=== PATIENT | female | born 1945 | race Caucasian/White ===

== ENCOUNTER 2024-12-08 11:14 | Emergency (ER) | payer MEDICARE, SELFPAY ==
--- NOTE | ~2024-12-08 | XR_ITS ---
EXAM/PROCEDURE: XR chest 2V - 12/08/2024 11:45 CDT HISTORY: 79 years old Female with fall TECHNIQUE: Two view(s) of the chest. COMPARISON: None available. FINDINGS: LUNGS/ PLEURA: No focal consolidation. No appreciable pneumothorax or large pleural effusion. HEART/ MEDIASTINUM: Heart appears normal in size. Atherosclerotic calcifications are seen in the aort a. BONES: Degenerative changes. Mild dextroscoliosis. OTHER: Visualized upper abdomen is unremarkable. IMPRESSION: No acute process. Reviewed, dictated and finalized at location A. IMPRESSION: No acute process.
--- NOTE | ~2024-12-08 | XR_ITS ---
EXAM/ PROCEDURE: XR pelvis 1-2V - 12/08/2024 11:45 CDT HISTORY: 79 years old Female with fall COMPARISON: None available TECHNIQUE: Two view(s) FINDINGS/ IMPRESSION: There are no fractures or dislocations.Joint space narrowing, subchondral sclerosis, subchondral cyst formation and osteophyte formation, compatible with moderate osteoarthritis. Reviewed, dictated and finalized at location A.
--- NOTE | ~2024-12-08 | XR_ITS ---
EXAM/ PROCEDURE: XR wrist LT min 3V - 12/08/2024 14:50 CDT HISTORY: 79 years old Female with trauma COMPARISON: None available TECHNIQUE: Three view(s) FINDINGS/ IMPRESSION: Diffuse osteopenia limiting evaluation of nondisplaced fracture. There are no fractures or dislocations.Joint space narrowing, subchondral sclerosis, subchondral cyst formation and osteophyte formation, compatible with mild osteoarthritis. Reviewed, dictated and finalized at location A.
--- NOTE | ~2024-12-08 | CT_ITS ---
EXAM: CT brain wo con, CT cervical spine wo con - 12/08/2024 11:25 CDT HISTORY: 79 years old Female with fall, head injury COMPARISON: None available. PROCEDURE: CT of the head and cervical spine without contrast. Axial, sagittal and coronal reformat karissa planes were evaluated. Automatic exposure control was used for this study. FINDINGS: Evaluation is limited secondary to artifact caused by the patient's motion. 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 No acute hemorrhage. No mass effect or herniation. Cline-white matter differentiation is maintained. M ild chronic volume loss. Scattered hypodensities in subcortical and periventricular white matter, lik bertha representing chronic microvascular ischemic changes in this age group. Atherosclerotic calcificat ion of the intracranial vessels is noted. VENTRICLES/ EXTRA-AXIAL SPACES: No hydrocephalus or extra-axial fluid collection. EXTRACRANIAL STRUCTURES: No calvarial fracture. CT CERVICAL SPINE: No acute fracture or subluxation. Straightening of cervical lordosis, likely positional or may be rel ated to muscle spasm. Multilevel degenerative changes of the cervical spine include varying degrees o f disk space narrowing, endplate osteophytosis as well as facet and uncal arthropathy. Prevertebral s oft tissues are within normal limits. Emphysematous changes are seen in the lungs. Heterogenous thyroid gland with multiple nodules. IMPRESSION: 1. No evidence for acute intracranial hemorrhage or calvarial fracture. 2. No evidence for cervical spine fracture or traumatic subluxation. 3. Multilevel degenerative changes of the cervical spine. 4. Heterogenous thyroid gland with multiple nodules. Correlate with prior imaging otherwise outpatie nt thyroid ultrasound can be performed for further evaluation. Reviewed, dictated and finalized at location A. IMPRESSION: 1. No evidence for acute intracranial hemorrhage or calvarial fracture. 2. No evidence for cervical spine fracture or traumatic subluxation. 3. Multilevel degenerative changes of the cervical spine. 4. Heterogenous thyroid gland with multiple nodules. Correlate with prior imag ing otherwise outpatient thyroid ultrasound can be performed for further evalua tion.
--- NOTE | 2024-12-08 11:20 | ED_ITS ---
HPI - Fall General Chief Complaint: Fall <Estela Stevens PA-C - Last Filed: 12/08/24 18:50> Stated Complaint: Fall-hit back of head <Estela Stevens PA-C - Last Filed: 12/08/24 18:50> Time Seen by Provider: 12/08/24 11:20 <Estela Stevens PA-C - Last Filed: 12/08/24 18:50> Focused HPI: This is a 79-year-old female that presents to the emergency department after a fall today. Reports she tripped in the parking lot and fell backwards. Hit her head. Does not believe she lost consciousness. Reports she is on a blood thinner. GENERAL: Elderly, well-nourished, and in no acute distress. HEAD: Normocephalic, atraumatic. CHEST: Clear to auscultation. ?No respiratory distress. HEART: Regular rate and rhythm.? NEURO: ?Alert and oriented x3. Patient screened in triage and initial orders placed.? ?Additional care and disposition to be based upon?diagnostic testing and treatment. <Estela Stevens PA-C - Last Filed: 12/08/24 18:50> Related Data Allergies/Adverse Reactions: Allergies Allergy/AdvReac Type Severity Reaction Status Date / Time No Known Allergies Allergy Verified 12/08/24 15:05 <Estela Stevens PA-C - Last Filed: 12/08/24 18:50> Review of Systems Review of Systems: All systems reviewed & are unremarkable except as noted in HPI and below (HPI) <Ildefonso Jorge MD - Last Filed: 12/08/24 15:23> Exam Narrative: Constitutional: Generally well appearing, no acute distress Head: Atraumatic, no deformities. Eyes: Pupils equal, round, and reactive to light. Neck: Supple, no tracheal deviation, no JVD. ENMT: Mucous membranes moist Cardiovascular: S1, S2 auscultated. No murmurs, rubs, or gallops. No S3/S4. Normal Distal pulses. No peripheral edema. Respiratory: Lung sounds equal. No wheezes, rales, or rhonchi. Gastrointestinal: Abdomen was soft and non-tender. Non-distended. No rebound or guarding. Genitourinary: Deferred Musculoskeletal: Normal muscle tone and bulk. No obvious deformities over the extremities. Only tender in the left wrist over the medial and lateral aspect without any significant swelling. Mild pain with range of motion of the wrist. Neurovascularly intact distally Skin: No rashes. Neurological: Strength 5/5 in extremities. Cranial nerves I-XII grossly intact. Distal sensation intact. Mental Status: Awake, alert and oriented x3. Follows commands <Ildefonso Jorge MD - Last Filed: 12/08/24 15:23> Course Vital Signs Vital signs: Vital Signs Temperature 98 F 12/08/24 11:21 Pulse Rate 97 12/08/24 11:21 Respiratory Rate 18 12/08/24 11:21 Blood Pressure 97/50 L 12/08/24 11:21 Pulse Oximetry 96 12/08/24 11:21 Oxygen Delivery Room Air 12/08/24 11:21 Temperature 98 F 12/08/24 11:21 Pulse Rate 72 12/08/24 15:07 Respiratory Rate 22 H 12/08/24 15:07 Blood Pressure 131/47 L 12/08/24 15:07 Pulse Oximetry 97 12/08/24 15:07 Oxygen Delivery Room Air 12/08/24 14:27 <Estela Stevens PA-C - Last Filed: 12/08/24 18:50> Vital Signs Temperature 98 F 12/08/24 11:21 Pulse Rate 97 12/08/24 11:21 Respiratory Rate 18 12/08/24 11:21 Blood Pressure 97/50 L 12/08/24 11:21 Pulse Oximetry 96 12/08/24 11:21 Oxygen Delivery Room Air 12/08/24 11:21 Temperature 98 F 12/08/24 11:21 Pulse Rate 72 12/08/24 15:07 Respiratory Rate 22 H 12/08/24 15:07 Blood Pressure 131/47 L 12/08/24 15:07 Pulse Oximetry 97 12/08/24 15:07 Oxygen Delivery Room Air 12/08/24 14:27 <Ildefonso Jorge MD - Last Filed: 12/08/24 15:23> MDM - Fall MDM Narrative Medical decision making narrative: Patient presenting for fall backwards of her wheelchair. She struck her head on the ground. No LOC. She is on Eliquis. Her only complaint at this point has pain in her left wrist exam shows mild tenderness with range of motion and lateral medial aspect tenderness of the wrist but no deformity and she is neurovascularly intact. Obtaining imaging to further evaluate. Imaging showed no focal function without regional bleeding. Patient reassessed, feeling well. Stable for discharge Pt feeling improved and would like to go home at this point. Return precautions were given to the patient include any new or worsening symptoms or development of and not limited to any chest pain, shortness of breath, lightheadedness, abdominal pain, fevers, chills. Patient understands and agrees. They are to follow-up with her PCP. All questions were answered. I reviewed and interpreted the patient's vital signs, pulse oximetry, cardiac care unit nurse, history, allergies, and labs and imaging workup. <Ildefonso Jorge MD - Last Filed: 12/08/24 15:23> Discharge Plan Discharge Clinical Impression: Accidental fall from wheelchair Qualifiers: Encounter type: initial encounter Qualified Code(s): W05.0XXA - Fall from non- moving wheelchair, initial encounter Head injury Qualifiers: Encounter type: initial encounter Qualified Code(s): S09.90XA - Unspecified injury of head, initial encounter Contusion of left wrist Qualifiers: Encounter type: initial encounter Qualified Code(s): S60.212A - Contusion of left wrist, initial encounter <Estela Stevens PA-C - Last Filed: 12/08/24 18:50> Patient Disposition: Home <Estela Stevens PA-C - Last Filed: 12/08/24 18:50> Condition: Stable <Estela Stevens PA-C - Last Filed: 12/08/24 18:50> Instructions: Antibiotic Form, Concussion (ED), Head Injury (ED) <Estela Stevens PA-C - Last Filed: 12/08/24 18:50> Patient Language: Latvian <Estela Stevens PA-C - Last Filed: 12/08/24 18:50> Follow-up/Referrals: PHYSICIAN,[employer] TECHNICAL MANAGER [Non-Staff] - <Estela Stevens PA-C - Last Filed: 12/08/24 18:50> Time of Disposition: 15:23 <Estela Stevens PA-C - Last Filed: 12/08/24 18:50> 15:23 <Ildefonso Jorge MD - Last Filed: 12/08/24 15:23>
[2024-12-08 11:21] VITALS: BP 97/50; PULSE 97; RESP 18; TEMP 36.6; O2SAT 96
[2024-12-08 14:27] VITALS: BP 120/55; PULSE 75; RESP 22; O2SAT 98
--- NOTE | 2024-12-08 15:06 | PC.NURSE ---
Family states pt can only take tylenol due to hx of kidney disease
[2024-12-08 15:07] VITALS: BP 131/47; PULSE 72; RESP 22; O2SAT 97
--- OUTSIDE RECORDS SUMMARY | 2024-12-08 15:39 | XMS_ITS | Clinical Summary ---
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
--- OUTSIDE RECORDS SUMMARY | 2024-12-08 15:39 | XMS_ITS ---
Author Organization [facility] Care Team Providers Care Finished Goods Stock Clerk Name Role Phone Isaiah Mcclendon Unavailable Unavailable Allergies and adverse reactions No Known Allergies Care Team Name Role Address Phone Organization Dates Isaiah Mcclendon PCP [address] [place], [address], [place] (Office): : [facility] 10/29/2023 - 11/13/2023 Immunizations Immunization Status Vaccine Details Vaccine Code CodeSystem Julio e Notes Prevnar 13 normal pneumococcal conjugate vaccine, 13 valent 133 CVX created date: 11/02/2023 consent date: 11/02/2023 influenza, unspecified formulation normal influenza virus vaccine, unspecified formulation 88 CVX created date: 11/02/2023 consent date: 11/02/2023 Mental Status Section Date Assessment Total Score Description 11/13/2023 BIMS 05 severe cognitiv e impairment CAM 0 No delirium ind icated PHQ-9 01 minimal depress ion 11/05/2023 BIMS 05 severe cognitiv e impairment CAM 0 No delirium ind icated PHQ-9 01 minimal depress ion Problems Problem # Description Date of onset Resolved Date Code CodeSystem Concern Status 1 ANXIETY DISORDER, UNSPECIFIED 10/29/[address] active 2 BENIGN NEOPLASM OF MENINGES, UNSPECIFIED 10/29/[address] active 3 BIPOLAR DISORDER, UNSPECIFIED 10/29/[address] active [address]Y, UNSPECIFIED 10/29/[address] active 5 CHRONIC KIDNEY DISEASE, STAGE 3B 10/29/[address] active 6 CHRONIC OBSTRUCTIVE PULMONARY DISEASE, UNSPECIFIED 10/29/[address] active 7 CHRONIC PULMONARY EDEMA 10/29/[address] active 8 DEPRESSION, UNSPECIFIED 10/29/[address] active 9 DYSPNEA, UNSPECIFIED 10/29/[address] active 10 EMPHYSEMA, UNSPECIFIED 10/29/[address] active 11 HEART FAILURE, UNSPECIFIED 10/29/[address] active 12 HYPERLIPIDEMIA, UNSPECIFIED 10/29/[address] active 13 NON-ST ELEVATION (NSTEMI) MYOCARDIAL INFARCTION 10/29/[address] active 14 OTHER SPECIFIED DISORDERS OF BONE DENSITY AND STRUCTURE, UNSPECIFIED SITE 10/29/[address] active 15 PARKINSONISM, UNSPECIFIED 10/29/[address] active 16 PAROXYSMAL ATRIAL FIBRILLATION 10/29/[address] active 17 PULMONARY HYPERTENSION, UNSPECIFIED 10/29/[address] active 18 SCHIZOAFFECTIVE DISORDER, BIPOLAR TYPE 10/29/[address] active 19 TYPE 2 DIABETES MELLITUS WITHOUT COMPLICATIONS 10/29/[address] active Reason for Referral No Reasons for Referral Entered Social History Social History Observation Description Start Date End Date Code Code System Current Smoking Status Tobacco smoking consumption unknown 241393285 SNOMED CT Sex Assigned At Female 1945 [address]241-9 [facility] Gender Identity Vital Signs Code Code System Vitals Name Values and Units Timing Information 9279-1 LOINC Respiratory Rate Value=18.0 Units=/m in 11/13/2023 8462-4 LOINC Blood Pressure-Diastolic Value=88 Un its=mmHg 11/13/2023 8480-6 LOINC Blood Pressure-Systolic Ebhaj=422 Un its=mmHg 11/13/2023 8310-5 LOINC Body Temperature Value=97.1 Units= F 11/13/2023 8867-4 [facility] Heart rate Value=78.0 Units=/min 84768-5 [facility] O2 % BldC Oximetry Value=98.0 Units= % 11/13/2023 32978-0 [facility] Pain Level Value=0.0 11/13/2023 13714-3 [facility] Weight Slqyj=313.6 Units=Lbs 8302-2 [facility] Height Value=67.0 Units=Inches 10/29/2023
--- OUTSIDE RECORDS SUMMARY | 2024-12-08 15:39 | XMS_ITS | Encounter Summary ---
Author Organization [employer] [facility] Address [address] [place] [address] Care Team Providers Care Payroll Machine Operator Name Role Phone Unavailable Primary Care Provider Unavailabl e Encounter Details Date Type Department Care Team (Latest Contact Info) Description 02/13/2000 Outpatient Historical [facility] Ildefonso Mcgovern V., PhD 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
== END 2024-12-08 15:54 | disposition home or self-care (01) ==
LOC: ANHED 15:36
PROVIDERS: Emergency Provider Emergency Medicine; PCP Nurse Practitioner Family
DX: S09.90XA Unspecified injury of head, initial encounter (principal); S60.212A Contusion of left wrist, initial encounter; W05.0XXA Fall from non-moving wheelchair, initial encounter; Z79.01 Long term (current) use of anticoagulants
CPT/HCPCS: 70450; 71046; 72125; 72170; 73110; 99284